=== PATIENT | female | born 1975 | race Caucasian/White ===

== ENCOUNTER 2019-01-31 08:09 | Day surgery (SDC) | payer OTHER | END 2019-01-31 22:53 | disposition home or self-care (01) | LOC: MOI US 08:09 → MOI MAM 08:30 → MOI US 08:30 | DX: N60.12 Diffuse cystic mastopathy of left breast (principal) | CPT/HCPCS: 19083; 77065; 88305; A4648; G0279 ==

== ENCOUNTER 2020-11-19 15:06 | Emergency (ER) | payer OTHER ==
[~2020-11-19] VITALS: Ht 170.2 cm; Wt 140.6 kg
[2020-11-19 16:34] LABS: BASOPHILS ABSOLUTE AUTO 0.08 K/mm3 (0.00-0.23); BASOPHILS PERCENT AUTO 1 % (0-2); EOSINOPHILS ABSOLUTE AUTO 0.11 K/mm3 (0.00-0.68); EOSINOPHILS PERCENT AUTO 1 % (0-6); Hematocrit 41.8 % (33.0-51.0); Hemoglobin 13.7 g/dL (11.5-16.0); IMMATURE GRAN ABSOLUTE AUTO 0.02 K/mm3 (0.00-0.10); IMMATURE GRAN PERCENT AUTO 0 % (0-1); LYMPHOCYTES ABSOLUTE AUTO 3.48 K/mm3 (0.84-5.20); LYMPHOCYTES PERCENT AUTO 32 % (21-46); MONOCYTES ABSOLUTE AUTO 0.79 K/mm3 (0.16-1.47); MONOCYTES PERCENT AUTO 7 % (4-13); Mean Corpuscular HGB 25.8 pg (26.0-34.0); Mean Corpuscular HGB Conc 32.8 g/dL (31.5-36.5); Mean Corpuscular Volume 79 fL (80-100); Mean Platelet Volume 8.4 fL (9.1-12.4); NEUTROPHILS ABSOLUTE AUTO 6.36 K/mm3 (1.96-9.15); NEUTROPHILS PERCENT AUTO 59 % (41-73); Platelet Count 395 K/mm3 (150-400); RDW Coefficient Variation 17.7 % (11.7-14.2); Red Blood Cell Count 5.32 M/mm3 (3.80-5.20); White Blood Cell Count 10.84 K/mm3 (4.00-11.30)
[2020-11-19 16:36] LABS: Source, Urine Clean Catch
[2020-11-19 16:45] LABS: Appearance, Urine Clear (Clear); Bilirubin, Urine Neg (Neg); Blood, Urine Neg (Neg); Color, Urine Yellow (P-Yellow); Glucose Qualitative, Urine Neg (Neg); Ketones, Urine Neg (Neg); Leukocyte Esterase, Urine Neg (Neg); Nitrite, Urine Neg (Neg); Protein, Urine Neg (Neg); Urobilinogen, Urine NORM (Normal)
[2020-11-19 17:00] LABS: Alanine Aminotransfer (ALT/SGP 36 U/L (12-78); Albumin, Blood 4.1 g/dL (3.4-5.0); Albumin/Globulin Ratio 1.2 (0.8-1.8); Alk Phos 71 U/L (50-136); Anion Gap 8 mmol/L (6-16); Aspartate Aminotrans (AST/SGOT 26 U/L (12-37); Bilirubin, Total 0.4 mg/dL (0.1-1.0); Blood Urea Nitrogen 7 mg/dL (8-24); Bun/Creatinine Ratio 9.3 (12.0-20.0); CO2, Blood 23 mmol/L (21-32); Chloride, Blood 107 mmol/L (98-108); Creatinine, Blood 0.75 mg/dL (0.40-1.00); Globulin, Blood 3.5 g/dL (2.2-4.0); Glomerular Filtration Rate >60 (60-); Glucose, Blood 103 mg/dL (70-99); Potassium, Blood 3.7 mmol/L (3.5-5.5); Sodium, Blood 138 mmol/L (136-145); Total Protein, Blood 7.6 g/dL (6.4-8.2)
== END 2020-11-19 21:00 | disposition home or self-care (01) ==
LOC: ER 15:06
PROVIDERS: Physician Assistant
DX: R10.10 Upper abdominal pain, unspecified (principal); R11.0 Nausea; Z91.030 Bee allergy status; Z88.8 Allergy status to other drugs, medicaments and biological substances; Z88.0 Allergy status to penicillin
CPT/HCPCS: 36415; 80053; 81003; 83690; 85025; 99283

== ENCOUNTER 2021-01-26 06:02 | Emergency (ER) | payer OTHER ==
[~2021-01-26] VITALS: Ht 170.2 cm; Wt 142.9 kg
== END 2021-01-26 06:27 | disposition home or self-care (01) ==
LOC: ER 06:02
DX: T85.898A Other specified complication of other internal prosthetic devices, implants and grafts, initial encounter (principal)
CPT/HCPCS: 99282

== ENCOUNTER 2022-09-12 10:38 | Day surgery (SDC) | payer OTHER ==
[~2022-09-12] VITALS: Ht 170.2 cm; Wt 144.9 kg
[~2022-09-12 10:38] MED LIST: B-12 COMPL1000 MCG/2 IM; BUPR150ER PO; DOCU100 PO; Hydroxyzine HCl25 MG; MELA3 PO; MIRALAX17 GM PO; MULVITA PO; Nifedipine5 GM MC; PANT40; PROP10 PO; QUET300 PO; SUMA25 PO
[2022-09-12 11:17] VITALS: BP 155/102
[2022-09-12 11:20] VITALS: BP 126/88
--- NOTE | 2022-09-12 11:22 | NUR ---
09/12/22 [address] GONZALEZ, SEE ANESTHESIA RECORDS.
[2022-09-12 12:44] VITALS: BP 134/97
[2022-09-12 12:59] VITALS: BP 125/76
[2022-09-12 13:01] VITALS: BP 127/87
--- NOTE | 2022-09-12 13:18 | NUR ---
PT AWAKE AND ALERT, VITALS STABLE, LUNGS CTA. PT STATES NO PAIN OR NAUSEA. MOTHER, GABRIEL AND PT TAUGHT DISCHARGE INSTRUCTIONS AND VERBALIZED UNDERSTANDING. PT DRINKING WITH NO DIFFICULTY. DISCHARGED VIA WHEELCHAIR TO HOME.
== END 2022-09-12 22:51 | disposition home or self-care (01) ==
LOC: ORSCMMR 10:38 → ORD 12:00 → ORSCMMR 22:51
PROVIDERS: Surgery
PROC: 0DBH8ZX Excision of Cecum, Via Natural or Artificial Opening Endoscopic, Diagnostic (ICD-10-PCS; principal; 2022-09-12 12:00)
DX: K60.2 Anal fissure, unspecified (principal); Z86.010 Personal history of colon polyps; D12.0 Benign neoplasm of cecum; F31.9 Bipolar disorder, unspecified; R56.9 Unspecified convulsions; F41.9 Anxiety disorder, unspecified; K21.9 Gastro-esophageal reflux disease without esophagitis; E66.01 Morbid (severe) obesity due to excess calories; Z68.43 Body mass index [BMI] 50.0-59.9, adult; Z87.891 Personal history of nicotine dependence; Z79.899 Other long term (current) drug therapy
CPT/HCPCS: 88305; J2250; J2704; J7120

== ENCOUNTER → 2022-12-10 | Outpatient (CLI) | payer OTHER | LOC: LAB SHORT 08:05 → PLD 08:05 → LAB 08:05 | DX: B37.89 Other sites of candidiasis (principal) | CPT/HCPCS: 88305; 88312 ==

== ENCOUNTER 2023-06-20 18:24 | Emergency (ER) | payer OTHER ==
[~2023-06-20] VITALS: Ht 170.2 cm; Wt 158.8 kg
[~2023-06-20 18:24] MED LIST changes: -B-12 COMPL1000 MCG/2 IM; +B-12 COMPL1000 MCG/2 PO; -Hydroxyzine HCl25 MG; +Hydroxyzine HCl25 MG PO
[2023-06-20 19:10] LABS: BASOPHILS ABSOLUTE AUTO 0.05 K/mm3 (0.00-0.23); BASOPHILS PERCENT AUTO 1 % (0-2); EOSINOPHILS ABSOLUTE AUTO 0.15 K/mm3 (0.00-0.68); EOSINOPHILS PERCENT AUTO 2 % (0-6); Hematocrit 40.9 % (33.0-51.0); Hemoglobin 13.9 g/dL (11.5-16.0); IMMATURE GRAN ABSOLUTE AUTO 0.05 K/mm3 (0.00-0.10); IMMATURE GRAN PERCENT AUTO 1 % (0-1); LYMPHOCYTES ABSOLUTE AUTO 3.26 K/mm3 (0.84-5.20); LYMPHOCYTES PERCENT AUTO 32 % (21-46); MONOCYTES ABSOLUTE AUTO 0.76 K/mm3 (0.16-1.47); MONOCYTES PERCENT AUTO 7 % (4-13); Mean Corpuscular HGB 29.7 pg (26.0-34.0); Mean Corpuscular Volume 87 fL (80-100); Mean Platelet Volume 8.2 fL (9.1-12.4); NEUTROPHILS ABSOLUTE AUTO 5.95 K/mm3 (1.96-9.15); NEUTROPHILS PERCENT AUTO 58 % (41-73); Platelet Count 258 K/mm3 (150-400); RDW Coefficient Variation 14.3 % (11.7-14.2); RDW Standard Deviation 45.8 fL (35.1-46.3); Red Blood Cell Count 4.68 M/mm3 (3.80-5.20); White Blood Cell Count 10.22 K/mm3 (4.00-11.30)
[2023-06-20 19:31] LABS: Albumin, Blood 3.7 g/dL (3.4-5.0); Albumin/Globulin Ratio 1.2 (0.8-1.8); Bilirubin, Total 0.2 mg/dL (0.1-1.0); Bun/Creatinine Ratio 17.1 (12.0-20.0); Calcium, Blood 8.9 mg/dL (8.5-10.1); Creatinine, Blood 0.58 mg/dL (0.40-1.00); Potassium, Blood 3.9 mmol/L (3.5-5.5); Total Protein, Blood 6.7 g/dL (6.4-8.2)
[2023-06-20] MEDS ORDERED: QUET200 PO (19:59)
[2023-06-20] MEDS ORDERED: LAMO100 PO (20:01)
[2023-06-20] MEDS ORDERED: MERIBIN5 MG PO (20:01)
[2023-06-20] MEDS ORDERED: NEXPLANON68 MG SQ (20:02)
[2023-06-20] MEDS ORDERED: MELO7.5 PO (20:02)
[2023-06-20] MEDS ORDERED: ONDA4ODT MM (20:02)
[2023-06-20] MEDS ORDERED: Klonopin1 MG PO (20:04)
[2023-06-20 22:30] VITALS: BP 136/77
[2023-06-20 22:53] LABS: Thyroid Stimulating Hormone 0.903 uIU/mL (0.360-4.800)
== END 2023-06-20 22:56 | disposition home or self-care (01) ==
LOC: ER 18:24
PROVIDERS: Student in an Organized Health Care Education/Training Program
DX: R00.2 Palpitations (principal); Z88.1 Allergy status to other antibiotic agents; Z88.0 Allergy status to penicillin; Z91.048 Other nonmedicinal substance allergy status; Z91.030 Bee allergy status; Z79.899 Other long term (current) drug therapy; I10 Essential (primary) hypertension
CPT/HCPCS: 80053; 84443; 84484; 85025; 93005; 93010; 99285-25

== ENCOUNTER 2023-11-02 18:22 | Emergency (ER) | payer OTHER ==
[~2023-11-02] VITALS: Ht 170.2 cm; Wt 163.3 kg
[~2023-11-02 18:22] MED LIST changes: +Klonopin1 MG PO; +LAMO100 PO; +MELO7.5 PO; +MERIBIN5 MG PO; +NEXPLANON68 MG SQ; +ONDA4ODT MM; -PANT40; +PANT40 PO; +QUET200 PO
[2023-11-02 19:00] LABS: BASOPHILS ABSOLUTE AUTO 0.07 K/mm3 (0.00-0.23); BASOPHILS PERCENT AUTO 1 % (0-2); EOSINOPHILS ABSOLUTE AUTO 0.25 K/mm3 (0.00-0.68); EOSINOPHILS PERCENT AUTO 2 % (0-6); Hematocrit 38.6 % (33.0-51.0); IMMATURE GRAN ABSOLUTE AUTO 0.08 K/mm3 (0.00-0.10); IMMATURE GRAN PERCENT AUTO 1 % (0-1); LYMPHOCYTES ABSOLUTE AUTO 3.38 K/mm3 (0.84-5.20); LYMPHOCYTES PERCENT AUTO 28 % (21-46); MONOCYTES ABSOLUTE AUTO 1.12 K/mm3 (0.16-1.47); MONOCYTES PERCENT AUTO 9 % (4-13); Mean Corpuscular HGB 29.7 pg (26.0-34.0); Mean Corpuscular HGB Conc 33.7 g/dL (31.5-36.5); Mean Corpuscular Volume 88 fL (80-100); Mean Platelet Volume 8.3 fL (9.1-12.4); NEUTROPHILS ABSOLUTE AUTO 7.17 K/mm3 (1.96-9.15); NEUTROPHILS PERCENT AUTO 59 % (41-73); Platelet Count 317 K/mm3 (150-400); RDW Coefficient Variation 14.5 % (11.7-14.2); RDW Standard Deviation 46.6 fL (35.1-46.3); Red Blood Cell Count 4.37 M/mm3 (3.80-5.20); White Blood Cell Count 12.07 K/mm3 (4.00-11.30)
[2023-11-02 19:13] LABS: Albumin/Globulin Ratio 1.3 (0.8-1.8); Bilirubin, Total 0.3 mg/dL (0.1-1.0); Calcium, Blood 9.2 mg/dL (8.5-10.1); Creatinine, Blood 0.75 mg/dL (0.40-1.00); Potassium, Blood 3.9 mmol/L (3.5-5.5)
[2023-11-02] MEDS ORDERED: BIOTIN5000 MC4 PO (19:32)
[2023-11-02] MEDS ORDERED: LITHIUM CARBON PO (19:35)
[2023-11-02] MEDS ORDERED: Furosemide 10 MG/ML 4ML Vial IV ONE (19:35)
[2023-11-02] MEDS ORDERED: WEGOVY0.25 MG/0. SC (19:37)
[2023-11-02] MEDS ORDERED: FURO20 PO (21:30)
[2023-11-02 21:40] VITALS: BP 148/96
== END 2023-11-02 21:45 | disposition home or self-care (01) ==
LOC: ER 18:22
PROVIDERS: Physician Assistant
DX: I89.0 Lymphedema, not elsewhere classified (principal); I10 Essential (primary) hypertension; Z79.899 Other long term (current) drug therapy; Z88.0 Allergy status to penicillin; Z88.1 Allergy status to other antibiotic agents; Z91.038 Other insect allergy status; Z88.5 Allergy status to narcotic agent; Z88.8 Allergy status to other drugs, medicaments and biological substances; Z91.048 Other nonmedicinal substance allergy status
CPT/HCPCS: 80053; 83880; 85025; 96374; 99283-25; J1940

== ENCOUNTER 2024-02-27 18:27 | Emergency (ER) | payer OTHER ==
[~2024-02-27] VITALS: Ht 170.2 cm; Wt 136.1 kg
[~2024-02-27 18:27] MED LIST changes: +BIOTIN5000 MC4 PO; +FURO20 PO; +LITHIUM CARBON PO; +WEGOVY0.25 MG/0. SC
[2024-02-27 18:36] VITALS: BP 151/96
== END 2024-02-27 20:32 | disposition home or self-care (01) ==
LOC: ER 18:27
DX: L73.1 Pseudofolliculitis barbae (principal); L70.0 Acne vulgaris
CPT/HCPCS: 99282

== ENCOUNTER 2024-05-01 02:32 | Emergency (ER) | payer OTHER ==
[~2024-05-01] VITALS: Ht 170.2 cm; Wt 155.9 kg
[2024-05-01] MEDS ORDERED: SULTRIDS PO (08:09)
[2024-05-01] MEDS ORDERED: CELE200 PO (08:11)
[2024-05-01] MEDS ORDERED: QUET300 PO (08:12)
[2024-05-01] MEDS ORDERED: EUCERIN ADVANC454 GM TOP (08:14)
[2024-05-01 08:18] VITALS: BP 121/55
[2024-05-01] MEDS ORDERED: LIDOCAINE 2.5%/PRILOCAINE 2.5% CREAM 30 GM TUBE TOP ONE (08:50)
[2024-05-01 09:28] LABS: BASOPHILS ABSOLUTE AUTO 0.07 K/mm3 (0.00-0.23); BASOPHILS PERCENT AUTO 1 % (0-2); EOSINOPHILS ABSOLUTE AUTO 0.27 K/mm3 (0.00-0.68); EOSINOPHILS PERCENT AUTO 3 % (0-6); Hematocrit 37.7 % (33.0-51.0); Hemoglobin 12.7 g/dL (11.5-16.0); IMMATURE GRAN ABSOLUTE AUTO 0.05 K/mm3 (0.00-0.10); IMMATURE GRAN PERCENT AUTO 1 % (0-1); LYMPHOCYTES ABSOLUTE AUTO 2.06 K/mm3 (0.84-5.20); LYMPHOCYTES PERCENT AUTO 20 % (21-46); MONOCYTES ABSOLUTE AUTO 0.87 K/mm3 (0.16-1.47); MONOCYTES PERCENT AUTO 8 % (4-13); Mean Corpuscular HGB 30.3 pg (26.0-34.0); Mean Corpuscular HGB Conc 33.7 g/dL (31.5-36.5); Mean Corpuscular Volume 90 fL (80-100); Mean Platelet Volume 8.2 fL (9.1-12.4); NEUTROPHILS ABSOLUTE AUTO 7.06 K/mm3 (1.96-9.15); NEUTROPHILS PERCENT AUTO 68 % (41-73); Platelet Count 264 K/mm3 (150-400); RDW Coefficient Variation 14.8 % (11.7-14.2); RDW Standard Deviation 48.8 fL (35.1-46.3); Red Blood Cell Count 4.19 M/mm3 (3.80-5.20); White Blood Cell Count 10.38 K/mm3 (4.00-11.30)
[2024-05-01 09:41] LABS: Albumin, Blood 3.6 g/dL (3.4-5.0); Albumin/Globulin Ratio 1.2 (0.8-1.8); Bilirubin, Total 0.3 mg/dL (0.1-1.0); Calcium, Blood 8.8 mg/dL (8.5-10.1); Creatinine, Blood 0.83 mg/dL (0.40-1.00); Globulin, Blood 2.9 g/dL (2.2-4.0); Total Protein, Blood 6.5 g/dL (6.4-8.2)
[2024-05-01] MEDS ORDERED: CEPH500 PO (10:20)
[2024-05-01] MEDS ORDERED: Cephalexin Monohydrate 250 MG/5 ML UD BTL PO ONE (10:20)
[2024-05-01] MEDS ORDERED: Cephalexin Monohydrate 500 MG Cap PO ONE (10:35)
== END 2024-05-01 10:37 | disposition home or self-care (01) ==
LOC: ER 02:32
PROVIDERS: Student in an Organized Health Care Education/Training Program
DX: L03.311 Cellulitis of abdominal wall (principal); I10 Essential (primary) hypertension; Z79.899 Other long term (current) drug therapy; Z88.1 Allergy status to other antibiotic agents; Z91.030 Bee allergy status; Z88.0 Allergy status to penicillin; Z88.5 Allergy status to narcotic agent; Z88.8 Allergy status to other drugs, medicaments and biological substances
CPT/HCPCS: 10160; 76705; 80053; 85025; 87086; 99284-25; A9270